=== PATIENT | male | born 1985 | race Caucasian/White ===

== ENCOUNTER 2023-08-27 13:21 | Emergency (ER) | payer MEDICAID, OTHER ==
[~2023-08-27] VITALS: Ht 188 cm; Wt 99.8 kg
[2023-08-27 13:24] VITALS: BP 175/95; PULSE 71; RESP 18; TEMP 98.3; O2SAT 96
[2023-08-27 13:27] VITALS: BP 140/79; PULSE 101; RESP 20; TEMP 97.8; O2SAT 99
[2023-08-27] MEDS: KETOROLAC 30 MG/ML VIAL IM ONE (14:24)
[2023-08-27] MEDS ORDERED: IBUP-2213 PO (15:23)
[2023-08-27 15:54] VITALS: BP 135/80; PULSE 88; RESP 16; TEMP 97.8; O2SAT 99
== END 2023-08-27 15:54 | disposition home or self-care (01) ==
LOC: MED 13:21
DX: S93.601A Unspecified sprain of right foot, initial encounter (principal); Z79.1 Long term (current) use of non-steroidal anti-inflammatories (NSAID); W05.1XXA Fall from non-moving nonmotorized scooter, initial encounter; Y93.89 Activity, other specified; Y92.410 Unspecified street and highway as the place of occurrence of the external cause; Y99.8 Other external cause status
CPT/HCPCS: 73590; 73610; 73630; 96372; 99284; J1885